=== PATIENT | male | born 1960 | race Caucasian/White ===

== ENCOUNTER 2017-05-22 22:34 | Inpatient (IN) | payer OTHER ==
[~2017-05-22] VITALS: Ht 172.7 cm; Wt 92.9 kg
[~2017-05-22 22:34] MED LIST: ADALKIT INJ; AZAT50TA25 PO; FLM4 PO; OXYC-57 PO; PHEN-1042 PO
[2017-05-22] MEDS ORDERED: PRLSR20 PO (22:49)
[2017-05-22] MEDS ORDERED: SODIUM CHLORIDE 0.9% 1000ML 1,000 ML IV STA (22:57)
[2017-05-22] MEDS ORDERED: ONDANSETRON INJ 2 MG/ML 2 ML VIAL IV STA (22:57)
--- NOTE | 2017-05-22 23:01 | EMERGENCY ROOM VISIT NOTE ---
History Report prepared by Nancy: Debbie Robins Under the Supervision of: Dr. Marv Merino D.O. First contact with patient: 22:45 Chief Complaint: ABDOMINAL PAIN Stated Complaint: SEVERE STOMACH PAIN,PUKING Nursing Triage Summary: hx of crohns c/o abd pain and n/v all day. History of Present Illness The patient is a 57 year old male who presents to the Emergency Room with complaints of intermittent abdominal pain for the past few days. He rates his discomfort as an 8/10 in severity. He admits to a history of Crohn's disease, for which he takes Humira. He has been on the Humira for the past 4 to 5 years. Today the patient became nauseous and started vomiting. He believes he still has his appendix and gallbladder. He admits to some minor rectal bleeding for the past few days. He has also experienced some back pain. The patient admits to a history of an anal fistula in the past. Source of History: patient Onset: past few days Position: abdomen Symptom Intensity: 8/10 Timing: intermittent Associated Symptoms: + nausea, + vomiting, + back pain Review of Systems See HPI for pertinent positives & negatives. A total of 10 systems reviewed and were otherwise negative. Past Medical & Surgical Medical Problems: (1) Anal fistula (2) Crohns disease (3) Enteritis (4) Kidney cancer (5) Leukocytosis Family History Cancer Social History Smoking Status: Never Smoker Alcohol Use: none Drug Use: none Marital Status: Housing Status: lives with significant other Occupation Status: unemployed Current/Historical Medications Scheduled Adalimumab (Humira Pen-Crohns Disease), 40 MG INJ EVERY 10 DAYS Azathioprine (Azathioprine), 250 MG PO DAILY Omeprazole (Prilosec), 1 CAP PO DAILY Scheduled PRN Oxycodone/Acetaminophen 5MG/325MG (Percocet 5MG/325MG), 1 TAB PO Q4H PRN for Pain Allergies Coded Allergies: No Known Allergies (Unverified , 05/22/17) Physical Exam Vital Signs Date Time Temp Pulse Resp B/P (MAP) Pulse Ox O2 Delivery O2 Flow Rate FiO2 05/23/17 01:40 76 18 134/86 94 Room Air 05/23/17 00:58 86 18 120/81 94 Room Air 05/22/17 23:42 89 05/22/17 23:37 87 20 140/78 93 Room Air 05/22/17 23:37 93 Room Air 05/22/17 22:37 36.3 85 18 122/75 95 Room Air Physical Exam GENERAL: Patient is awake, alert, very anxious appearing and uncomfortable EYES: The conjunctivae are clear. The pupils are round and reactive. EARS, NOSE, MOUTH AND THROAT: The nose is without any evidence of any deformity. Mucous membranes are moist tongue is midline NECK: The neck is nontender and supple. RESPIRATORY: Normal respiratory effort is noted there is no evidence of wheezing rhonchi or rales CARDIOVASCULAR: Regular rate and rhythm noted there no murmurs rubs or gallops normal S1 normal S2 GASTROINTESTINAL: The abdomen is moderately distended and diffusely tender. Significant tenderness in the LLQ. BACK: No midline tenderness or or step-off noted range of motion in flexion extension as well as rotation no signs of muscle spasm noted MUSCULOSKELETAL/EXTREMITIES: There is no evidence of gross deformity full range of motion is noted in the hips and shoulders SKIN: There is no obvious evidence of any rash. There are no petechiae, pallor or cyanosis noted. NEUROLOGIC: Patient is awake alert and oriented x3 Medical Decision & Procedures ER Provider Diagnostic Interpretation: CT the abdomen and pelvis was obtained in the emergency department. The report reviewed. Preliminary Findings Only See Final Report For Complete Findings CT ABDOMEN & PELVIS With Contrast: Lower thorax demonstrates dependent atelectasis. Subcentimeter lesion within the left hepatic lobe, which is nonspecific. Gallbladder, spleen, pancreas and adrenal glands are unremarkable. Kidneys, ureters and urinary bladder are unremarkable. Postsurgical changes within the bowel with edema noted within the small bowel mesentery, which is nonspecific. Query a nonspecific enteritis. Appendix is surgically absent. Gas is noted within the soft tissues of the anterior lower left abdominal wall, likely iatrogenic. No acute osseous abnormality. Radiologist: Steven Dailey MD Study ready at 01:38 and initial results transmitted at 01:56 Laboratory Results Test 05/22/17 22:58 05/22/17 23:55 Direct Bilirubin < 0.1 mg/dl (0-0.2) Lipase 130 U/L (73-393) Urine Color DK YELLOW Urine Appearance CLEAR (CLEAR) Urine pH 5.0 (4.5-7.5) Urine Specific [place] 1.032 (1.000-1.030) Urine Protein NEG (NEG) Urine Glucose (UA) NEG (NEG) Urine Ketones NEG (NEG) Urine Occult Blood NEG (NEG) Urine Nitrite NEG (NEG) Urine Bilirubin NEG (NEG) Urine Urobilinogen NEG (NEG) Urine Leukocyte Esterase NEG (NEG) Laboratory results per my review. Medications Administered Medications (Trade) Dose Ordered Sig/Deb Route Start Time Stop Time Status Last Admin Dose Admin Sodium Chloride 1,000 ml @ 999 mls/hr Q1H1M STAT IV 05/22/17 22:57 05/22/17 23:57 DC 05/22/17 23:12 999 MLS/HR Ondansetron HCl (Zofran Inj) 4 mg NOW STAT IV 05/22/17 22:57 05/22/17 22:59 DC 05/22/17 23:12 4 MG Morphine Sulfate (MoRPHine SULFATE INJ) 4 mg Q15M PRN IV 05/22/17 23:00 05/23/17 04:13 DC 05/23/17 00:55 4 MG Sodium Chloride 1,000 ml @ 999 mls/hr Q1H1M STAT IV 05/23/17 01:45 05/23/17 02:45 DC 05/23/17 01:56 999 MLS/HR Sodium Chloride 1,000 ml @ 200 mls/hr Q5H STAT IV 05/23/17 01:45 05/23/17 04:09 DC 05/23/17 01:45 200 MLS/HR Cefoxitin Sodium (Mefoxin 2000mg/ 60 ml D5W) 2,000 mg NOW STAT IV 05/23/17 01:45 05/23/17 01:46 DC 05/23/17 01:56 2,000 MG ED Course 2256: The patient was evaluated in room B4. A complete history and physical examination were performed. 2257: Zofran 4 mg IV, NSS 1000 ml @ 999 mls/hr IV. 2300: Morphine Sulfate 4 mg IV. 0145: Mefoxin 2000 mg/60 ml D5W 2000 mg IV, NSS 1000 ml @ 200 mls/hr IV, NSS 1000 ml @ 999 mls/hr IV. 0150: I discussed the patients case with Dr. Alatorre, [facility] Hospitalist. The patient will be further evaluated. Medical Decision Prior records/ancillary studies reviewed. Triage Nursing notes reviewed. The patient's history was concerning for abdominal pain. Differential diagnosis: Etiologies such as appendicitis, diverticulitis, PUD, biliary pathology, UTI, pancreatitis, obstruction, mesenteric ischemia, aortic pathology, infections, inflammatory bowel disease, renal colic, as well as others were entertained. The patient is a 57-year-old male who presented to the emergency department for abdominal pain. The patient's history of Crohn's disease and has had bowel obstruction in the past. His history and physical exam appeared to be consistent with bowel obstruction. He was treated with IV fluids IV pain medicine and IV antiemetics. He was found have an elevated white blood cell count. He was started on IV antibiotics. His initial CAT scan really did not favor a small bowel obstruction although clinically it appeared to be consistent with a bowel obstruction. I discussed the patient's laboratory and radiographic studies with him. I also discussed his case with the on-call [facility] hospitalist. They have agreed to evaluate the patient in the emergency department for further management and disposition. Medication Reconcilliation Current Medication List: was personally reviewed by me Blood Pressure Screening Patient's blood pressure: Normal blood pressure Blood pressure disposition: Did not require urgent referral Consults Time Called: 0145 [facility] Return[facility] Call: 0150 I discussed the patients case with Sanjana Mcclendon. The patient will be further evaluated. Impression Primary Impression: RLQ abdominal pain Additional Impression: Crohn's disease Scribe Attestation The scribe's documentation has been prepared under my direction and personally reviewed by me in its entirety. I confirm that the note above accurately reflects all work, treatment, procedures, and medical decision making performed by me. Departure Information Dispostion Being Evaluated By Hospitalist Referrals Bernard Rasmussen (PCP) Patient Instructions My [facility] Problem Qualifiers Additional Impression: Crohn's disease Gastrointestinal tract location: unspecified location Digestive disease complication type: unspecified complication Qualified Codes: K50.919 - Crohn' s disease, unspecified, with unspecified complications
[2017-05-22 23:08] LABS: BASO % 0.2 %; BASO ABS # 0.04 K/uL (0-0.2); EOS % 0.1 %; EOS ABS # 0.02 K/uL (0-0.5); HEMATOCRIT 44.1 % (42-52); HEMOGLOBIN 15.6 g/dL (14.0-18.0); IG# 0.07 K/uL (0.00-0.02); LYMPH ABS # 2.42 K/uL (1.2-3.4); MEAN CELL VOLUME 83.4 fL (80-100); MEAN CORPUSCULAR HEMOGLOBIN 29.5 pg (25-34); MEAN CORPUSCULAR HGB CONC 35.4 g/dl (32-36); MEAN PLATELET VOLUME 9.4 fL (7.4-10.4); MONO % 5.4 %; MONO ABS # 1.01 K/uL (0.11-0.59); NEUT % 80.9 %; NEUT ABS # 15.08 K/uL (1.4-6.5); PLATELET COUNT 231 K/uL (130-400); RED CELL DISTRIBUTION WIDTH CV 12.7 % (11.5-14.5); WHITE BLOOD COUNT 18.64 K/uL (4.8-10.8)
[2017-05-22] MEDS: MoRPHine SULFATE 4 MG/ML 1 ML CARP\\VIAL IV PRN (23:13)
[2017-05-22 23:27] LABS: ALBUMIN 3.7 gm/dl (3.4-5.0); ALT/SGPT 22 U/L (12-78); BLOOD UREA NITROGEN 24 mg/dl (7-18); CALCIUM 9.3 mg/dl (8.5-10.1); CARBON DIOXIDE 27 mmol/L (21-32); CREATININE 1.02 mg/dl (0.60-1.40); GLUCOSE 120 mg/dl (70-99); LIPASE 130 U/L (73-393); POTASSIUM 3.6 mmol/L (3.5-5.1); SODIUM 139 mmol/L (136-145)
[2017-05-22 23:30] LABS: ALKALINE PHOSPHATASE 84 U/L (45-117); AST/SGOT 15 U/L (15-37); TOTAL PROTEIN 8.2 gm/dl (6.4-8.2)
[2017-05-22] MEDS ORDERED: OPTIRAY 320 IV PRN (23:30)
[2017-05-23] MEDS: MoRPHine SULFATE 4 MG/ML 1 ML CARP\\VIAL IV PRN (00:55)
[2017-05-23] MEDS ORDERED: CEFOXITIN 2000MG/60 ML D5W IV STA (01:45)
[2017-05-23] MEDS ORDERED: SODIUM CHLORIDE 0.9% 1000ML 1,000 ML IV STA ×2 (01:45)
--- NOTE | 2017-05-23 02:44 | History and Physical ---
History & Physical Date & Time of Service: May 23, 2017 at 02:34 Chief Complaint: Severe Stomach Pain,Puking Primary Care Physician: Bernard Rasmussen History of Present Illness Source: patient This is a 57 year old M with Crohns disease on outpatient medication of adalimumab (Humira) injections and Azathioprine (Muran) PO who presents to the emergency department with abdominal pain x 2 days with vomiting and subjective fever x 1 day and is found to have Leukocytosis of 18,000. Patient denies recent use of steroids. Patient also reporting episodes of loose tool/diarrhea. Patient denies recent antibiotics use. On imaging, CT abdomen shows edema within the small bowel mesentery suggestive of enteritis. In the ED, patient was given Cefoxitin 2 gram IV. Past Medical/Surgical History Medical Problems: (1) Crohns disease Status: Chronic (2) Kidney cancer Status: Resolved Family History Cancer Social History Smoking Status: Never Smoker Drug Use: none Marital Status: Housing status: lives with family Occupational Status: unemployed Allergies Coded Allergies: No Known Allergies (Unverified , 05/22/17) Home Medications Scheduled Adalimumab (Humira Pen-Crohns Disease), 40 MG INJ EVERY 10 DAYS Azathioprine (Azathioprine), 250 MG PO DAILY Omeprazole (Prilosec), 1 CAP PO DAILY Scheduled PRN Oxycodone/Acetaminophen 5MG/325MG (Percocet 5MG/325MG), 1 TAB PO Q4H PRN for Pain Review of Systems Constitutional: + fever Eyes: No worsening of vision ENT: No hearing loss, No nasal symptoms, No sore throat, No trouble swallowing Respiratory: No cough, No sputum, No wheezing, No shortness of breath Cardiovascular: No chest pain, No edema, No palpitations Abdomen: + pain, + nausea, + vomiting, + diarrhea, No constipation Musculoskeletal: No joint pain, No muscle pain, No swelling, No calf pain Genitourinary - Male: No dysuria Neurologic: No paralysis, No numbness/tingling Psychiatric: No substance abuse Endocrine: No fatigue Hematologic / Lymphatic: No abnormal bleeding/bruising Integumentary: No rash, No itch Physical Exam Vital Signs Date Time Temp Pulse Resp B/P (MAP) Pulse Ox O2 Delivery O2 Flow Rate FiO2 05/23/17 01:40 76 18 134/86 94 Room Air 1/14/18 00:58 86 18 120/81 94 Room Air 05/22/17 23:42 89 05/22/17 23:37 87 20 140/78 93 Room Air 05/22/17 23:37 93 Room Air 05/22/17 22:37 36.3 85 18 122/75 95 Room Air General Appearance: no apparent distress Head: normocephalic, atraumatic Eyes: normal inspection, EOMI ENT: normal ENT inspection, TMs normal, pharynx normal Neck: supple, no JVD, trachea midline Respiratory/Chest: chest non-tender, lungs clear, normal breath sounds, no respiratory distress, no accessory muscle use Cardiovascular: regular rate, rhythm, no edema, no JVD, normal peripheral pulses Abdomen/GI: normal bowel sounds, soft, no pulsatile mass, + pertinent finding ( midline surgical scar, abdomenal tenderness to palpation when pressing on center of the scar) Back: normal inspection, no muscle spasm, normal range of motion Extremities/Musculoskelatal: normal inspection, no calf tenderness, no pedal edema, normal range of motion, non-tender Neurologic/Psych: no motor/sensory deficits, alert, normal mood/affect, oriented x 3 Skin: normal color, warm/dry, no rash Diagnostics Laboratory Results Results Past 24 Hours Test 05/22/17 22:58 05/22/17 23:55 Range/Units White Blood Count 18.64 4.8-10.8 K/uL Red Blood Count 5.29 4.7-6.1 M/uL Hemoglobin 15.6 14.0-18.0 g/dL Hematocrit 44.1 42-52 % Mean Corpuscular Volume 83.4 80-100 fL Mean Corpuscular Hemoglobin 29.5 25-34 pg Mean Corpuscular Hemoglobin Concent 35.4 32-36 g/dl Platelet Count 231 130-400 K/uL Mean Platelet Volume 9.4 7.4-10.4 fL Neutrophils (%) (Auto) 80.9 % Lymphocytes (%) (Auto) 13.0 % Monocytes (%) (Auto) 5.4 % Eosinophils (%) (Auto) 0.1 % Basophils (%) (Auto) 0.2 % Neutrophils # (Auto) 15.08 1.4-6.5 K/uL Lymphocytes # (Auto) 2.42 1.2-3.4 K/uL Monocytes # (Auto) 1.01 0.11-0.59 K/uL Eosinophils # (Auto) 0.02 0-0.5 K/uL Basophils # (Auto) 0.04 0-0.2 K/uL RDW Standard Deviation 38.0 36.4-46.3 fL RDW Coefficient of Variation 12.7 11.5-14.5 % Immature Granulocyte % (Auto) 0.4 % Immature Granulocyte # (Auto) 0.07 0.00-0.02 K/uL Sodium Level 139 136-145 mmol/L Potassium Level 3.6 3.5-5.1 mmol/L Chloride Level 103 98-107 mmol/L Carbon Dioxide Level 27 21-32 mmol/L Anion Gap 8.0 3-11 mmol/L Blood Urea Nitrogen 24 7-18 mg/dl Creatinine 1.02 0.60-1.40 mg/dl Est Creatinine Clear Calc Drug Dose 89.8 ml/min Estimated GFR () 95.5 Estimated GFR (Non- 82.4 BUN/Creatinine Ratio 23.0 10-20 Random Glucose 120 70-99 mg/dl Calcium Level 9.3 8.5-10.1 mg/dl Total Bilirubin 0.6 0.2-1 mg/dl Direct Bilirubin < 0.1 0-0.2 mg/dl Aspartate Amino Transf (AST/SGOT) 15 15-37 U/L Alanine Aminotransferase (ALT/SGPT) 22 12-78 U/L Alkaline Phosphatase 84 45-117 U/L Total Protein 8.2 6.4-8.2 gm/dl Albumin 3.7 3.4-5.0 gm/dl Lipase 130 73-393 U/L Urine Color DK YELLOW Urine Appearance CLEAR CLEAR Urine pH 5.0 4.5-7.5 Urine Specific [place] 1.032 1.000-1.030 Urine Protein NEG NEG Urine Glucose (UA) NEG NEG Urine Ketones NEG NEG Urine Occult Blood NEG NEG Urine Nitrite NEG NEG Urine Bilirubin NEG NEG Urine Urobilinogen NEG NEG Urine Leukocyte Esterase NEG NEG Impression Assessment and Plan This is a 57 year old M with Crohns disease on outpatient medication of adalimumab (Humira) injections and Azathioprine (Muran) PO who presents to the emergency department with abdominal pain x 2 days with vomiting and subjective fever x 1 day and is found to have Leukocytosis of 18,000. Patient denies recent use of steroids. Patient also reporting episodes of loose tool/diarrhea. Patient denies recent antibiotics use. On imaging, CT abdomen shows edema within the small bowel mesentery suggestive of enteritis. In the ED, patient was given Cefoxitin 2 gram IV. Differential for the small bowel inflammation may be Crohn's disease flare vs bacterial source of infection -GI consult requested whether this presentation may be Crohn's disease or from infectious process -will hold home dose immunosuppressants for now pending GI evaluation -stool study, fecal occult blood stool, C. diff test ordered -patient was given Cefoxitin 2 gram IV in the ED, will switch to Cipro IV and Flagyl IV for greater GI and anaerobic coverage of possible bacterial infection -IV fluids, antiemetics, pain medications -NPO except meds/ice chips/sips for now. advance diet as tolerated -DVT ppx SCDs Full Code Patient has followed with Dr. Tang of Gastroenterology in [place] Patient has followed with primary care Bernard Rasmussen [phone] Level of Care Med/Surg Resuscitation Status FULL RESUSCITATION VTE Prophylaxis VTE Risk Assessment Done? Y/N: Yes Risk Level: Moderate
[2017-05-23] MEDS ORDERED: ONDANSETRON INJ 2 MG/ML 2 ML VIAL IV PRN (02:45)
[2017-05-23 04:00] VITALS: BP 129/77; PULSE 78; TEMP 36.9; O2SAT 92; BMI 31.1
[2017-05-23] MEDS: ACETAMINOPHEN IV 650 MG in EMPTY BAG 0 ML IV PRN ×2 (04:20→17:48)
[2017-05-23] MEDS ORDERED: POTASSIUM CHLR 10 MEQ / WTR 10 MEQ in PREMIXED WATER 100 ML IV SCH (04:30)
[2017-05-23] MEDS: METRONIDAZOLE / NSS 500 MG in PREMIXED NSS 100 ML IV SCH ×3 (05:51→23:05)
--- NOTE | 2017-05-23 06:52 | DIAGNOSTIC IMAGING REPORT ---
ABDOMEN AND PELVIS CT WITH IV AND ORAL CONTRAST CT DOSE: 668.87 mGy.cm HISTORY: Right lower quadrant pain. Crohn's disease. TECHNIQUE: Multiaxial CT images of the abdomen and pelvis were performed following the use of intravenous and oral contrast. A dose lowering technique was utilized adhering to the principles of ALARA. COMPARISON STUDY: Abdomen and pelvis CT 11/07/2014. FINDINGS: Groundglass densities within the bilateral lower lobes favor subsegmental atelectasis. No pneumoperitoneum. No pneumatosis. No fractures within the visualized osseous structures. A stable 1.3 cm hypodense lesion within the hepatic dome. This favors a cyst or a the gallbladder, pancreas, spleen, adrenal glands, left kidney are unremarkable. Focal scarring within the lower pole the right kidney. No hydronephrosis. No retroperitoneal lymphadenopathy. The bladder is unremarkable. There is a single mildly enlarged right perirectal lymph node measuring 8 mm. This is increased in size when it previously measured 4 mm. The ascending colon and transverse colon have been resected. Mild thickening of the bowel loops at the anastomotic suture within the left side of the abdomen. There is also mesenteric fat stranding/edema surrounding the majority of the small bowel loops within the midabdomen and right lower quadrant. These small bowel loops are borderline distended measuring up to 3.3 cm. There is a decompressed loop of bowel seen within the midabdomen on image 234. This is approximately 15 cm proximal to the anastomosis. Mild thickening within the distal small bowel loops within the midabdomen. Therefore, these findings favor an enterocolitis at the site of anastomosis. This likely represents active inflammatory bowel disease. IMPRESSION: 1. Mild thickening within the distal small bowel loops within the midabdomen and the bowel loops at the ileocolonic anastomosis within the left side of the abdomen. There is also edema/fat stranding seen throughout the majority of the mesentery. Therefore, these findings likely represent an enterocolitis in the setting of active inflammatory bowel disease. 2. Borderline distended loops of the majority of small bowel with a decompressed loop of small bowel within the midabdomen. This favors a partial small bowel obstruction likely due to the inflamed small bowel. 3. Single mildly enlarged right perirectal lymph node or this could be reactive. Electronically signed by: Jj Light M.D. 05/23/2017 6:51 AM Dictated Date/Time: 05/23/2017 6:37 AM
[2017-05-23 07:20] VITALS: BP 109/66; PULSE 76; TEMP 36.3; O2SAT 93
[2017-05-23 07:36] LABS: BASO % 0.2 %; BASO ABS # 0.02 K/uL (0-0.2); EOS % 0.3 %; EOS ABS # 0.03 K/uL (0-0.5); HEMATOCRIT 38.1 % (42-52); HEMOGLOBIN 13.2 g/dL (14.0-18.0); IG# 0.03 K/uL (0.00-0.02); LYMPH % 24.9 %; MEAN CELL VOLUME 84.7 fL (80-100); MEAN CORPUSCULAR HEMOGLOBIN 29.3 pg (25-34); MEAN CORPUSCULAR HGB CONC 34.6 g/dl (32-36); MEAN PLATELET VOLUME 9.6 fL (7.4-10.4); MONO % 7.7 %; NEUT % 66.6 %; NEUT ABS # 7.76 K/uL (1.4-6.5); PLATELET COUNT 217 K/uL (130-400); RED CELL DISTRIBUTION WIDTH CV 12.8 % (11.5-14.5); RED CELL DISTRIBUTION WIDTH SD 39.2 fL (36.4-46.3); WHITE BLOOD COUNT 11.64 K/uL (4.8-10.8)
[2017-05-23 08:21] LABS: ALBUMIN 2.7 gm/dl (3.4-5.0); CALCIUM 7.9 mg/dl (8.5-10.1); CREATININE 0.97 mg/dl (0.60-1.40); POTASSIUM 3.7 mmol/L (3.5-5.1); TOTAL PROTEIN 6.4 gm/dl (6.4-8.2)
[2017-05-23] MEDS ORDERED: ACETAMINOPHEN IV 650 MG in EMPTY BAG 0 ML IV ONE (09:00)
[2017-05-23] MEDS ORDERED: NURSING VERBAL MED ORDER ONE ×2 (09:00→18:00)
[2017-05-23] MEDS ORDERED: COUGH DROP (SUGAR FREE) LOZ 24 LOZ/1 BOX ONE (09:20)
[2017-05-23] MEDS: CIPROFLOXACIN / D5W 400 MG in PREMIXED IN D5W 200 ML IV SCH ×2 (10:19→20:44)
[2017-05-23] MEDS: SODIUM CHLORIDE 0.9% 1000ML 1,000 ML IV SCH (10:19)
--- NOTE | 2017-05-23 13:20 | Progress Note ---
Internal Med Progress Note Date of Service: May 23, 2017. Provider Documentation: SUBJECTIVE: The patient was seen and examined Feels much better Denies any abdominal distension,Nausea and or vomiting OBJECTIVE: Vital Signs-as noted below Exam: General-No distress at rest Eyes-normal ENT-normal Neck-supple Lungs-Clear to auscultate bilaterally Heart-Regular,no murmur appreciated Abdomen-Benign,no masses,bowel sound present Extremities-No edema Neuro-AAOx3 No focal neuro deficit Lab data as noted below. ASSESSMENT & PLAN: This is a 57 year old M with Crohn disease on outpatient medication of adalimumab (Humira) injections and Azathioprine (Muran) PO who presents to the emergency department with abdominal pain x 2 days with vomiting and subjective fever x 1 day and is found to have Leukocytosis of 18,000. Patient denies recent use of steroids. Patient also reporting episodes of loose tool/diarrhea. Patient denies recent antibiotics use. On imaging, CT abdomen shows edema within the small bowel mesentery suggestive of enteritis. In the ED, patient was given Cefoxitin 2 gram IV. Enteritis/Colitis -Differential for the small bowel inflammation may be Crohn's disease flare vs bacterial source of infection -GI consult requested whether this presentation may be Crohn's disease or from infectious process and need for any Steroid -Hold home dose immunosuppressants for now pending GI evaluation -Stool study, fecal occult blood stool, C. diff test ordered -Patient was given Cefoxitin 2 gram IV in the ED, will switch to Cipro IV and Flagyl IV for greater GI and anaerobic coverage of possible bacterial infection -IV fluids, antiemetics, pain medications -Clears orally and advanced as tolerated -clinically much better -DVT ppx SCDs Full Code Patient has followed with Dr. Tang of Gastroenterology in [place] Patient has followed with primary care Bernard Rasmussen DISPOSITION Awaited Vital Signs: Date Time Temp Pulse Resp B/P (MAP) Pulse Ox O2 Delivery O2 Flow Rate FiO2 05/23/17 07:30 Room Air 05/23/17 07:20 36.3 76 18 109/66 (80) 93 Room Air 05/23/17 04:00 36.9 78 18 129/77 92 Room Air 05/23/17 03:50 Room Air 05/23/17 03:18 82 05/23/17 03:00 79 18 139/98 92 05/23/17 02:43 76 18 141/85 93 Room Air 05/23/17 01:40 76 18 134/86 94 Room Air 05/23/17 00:58 86 18 120/81 94 Room Air 05/22/17 23:42 89 05/22/17 23:37 87 20 140/78 93 Room Air 05/22/17 23:37 93 Room Air 05/22/17 22:37 36.3 85 18 122/75 95 Room Air Lab Results: Results Past 24 Hours Test 05/22/17 22:58 05/22/17 23:55 05/23/17 07:21 Range/Units White Blood Count 18.64 11.64 4.8-10.8 K/uL Red Blood Count 5.29 4.50 4.7-6.1 M/uL Hemoglobin 15.6 13.2 14.0-18.0 g/dL Hematocrit 44.1 38.1 42-52 % Mean Corpuscular Volume 83.4 84.7 80-100 fL Mean Corpuscular Hemoglobin 29.5 29.3 25-34 pg Mean Corpuscular Hemoglobin Concent 35.4 34.6 32-36 g/dl Platelet Count 231 217 130-400 K/uL Mean Platelet Volume 9.4 9.6 7.4-10.4 fL Neutrophils (%) (Auto) 80.9 66.6 % Lymphocytes (%) (Auto) 13.0 24.9 % Monocytes (%) (Auto) 5.4 7.7 % Eosinophils (%) (Auto) 0.1 0.3 % Basophils (%) (Auto) 0.2 0.2 % Neutrophils # (Auto) 15.08 7.76 1.4-6.5 K/uL Lymphocytes # (Auto) 2.42 2.90 1.2-3.4 K/uL Monocytes # (Auto) 1.01 0.90 0.11-0.59 K/uL Eosinophils # (Auto) 0.02 0.03 0-0.5 K/uL Basophils # (Auto) 0.04 0.02 0-0.2 K/uL RDW Standard Deviation 38.0 39.2 36.4-46.3 fL RDW Coefficient of Variation 12.7 12.8 11.5-14.5 % Immature Granulocyte % (Auto) 0.4 0.3 % Immature Granulocyte # (Auto) 0.07 0.03 0.00-0.02 K/uL Sodium Level 139 140 136-145 mmol/L Potassium Level 3.6 3.7 3.5-5.1 mmol/L Chloride Level 103 108 98-107 mmol/L Carbon Dioxide Level 27 25 21-32 mmol/L Anion Gap 8.0 7.0 3-11 mmol/L Blood Urea Nitrogen 24 17 7-18 mg/dl Creatinine 1.02 0.97 0.60-1.40 mg/dl Est Creatinine Clear Calc Drug Dose 89.8 81.5 ml/min Estimated GFR () 95.5 101.4 Estimated GFR (Non- 82.4 87.5 BUN/Creatinine Ratio 23.0 17.6 10-20 Random Glucose 120 97 70-99 mg/dl Calcium Level 9.3 7.9 8.5-10.1 mg/dl Total Bilirubin 0.6 0.6 0.2-1 mg/dl Direct Bilirubin < 0.1 0-0.2 mg/dl Aspartate Amino Transf (AST/SGOT) 15 8 15-37 U/L Alanine Aminotransferase (ALT/SGPT) 22 17 12-78 U/L Alkaline Phosphatase 84 62 45-117 U/L Total Protein 8.2 6.4 6.4-8.2 gm/dl Albumin 3.7 2.7 3.4-5.0 gm/dl Lipase 130 73-393 U/L Urine Color DK YELLOW Urine Appearance CLEAR CLEAR Urine pH 5.0 4.5-7.5 Urine Specific [place] 1.032 1.000-1.030 Urine Protein NEG NEG Urine Glucose (UA) NEG NEG Urine Ketones NEG NEG Urine Occult Blood NEG NEG Urine Nitrite NEG NEG Urine Bilirubin NEG NEG Urine Urobilinogen NEG NEG Urine Leukocyte Esterase NEG NEG Globulin 3.7 2.5-4.0 gm/dl Albumin/Globulin Ratio 0.7 0.9-2 Microbiology Results 05/23/17 C.difficile Toxin B Gene (PCR) - Final, Complete No C. difficile toxin B gene detected 05/23/17 Shiga Toxin Test, Received Pending 05/23/17 Stool Culture, Received Pending
[2017-05-23] MEDS ORDERED: METHYLPREDNISOLONE IV 40 MG in SYRINGE 0 ML IV SCH (14:00)
[2017-05-23 14:59] VITALS: BP 128/76; PULSE 67; TEMP 36.8; O2SAT 96
--- NOTE | 2017-05-23 19:03 | GASTROINTESTINAL CONSULTATION ---
DATE OF CONSULTATION: 05/23/2017 GASTROENTEROLOGY CONSULTATION AND CROSS COVERAGE FOR: [facility]. RACE: . ATTENDING PHYSICIAN: Dr. Alexander Alatorre. CONSULTING PHYSICIAN: Dr. Damian. REASON FOR CONSULTATION: Crohn flare versus infectious enteritis. HISTORY OF PRESENT ILLNESS: Bruce Burton is a 57-year-old male with a longstanding history of Crohn disease who has previously undergone a bowel resection secondary to ileocolonic Crohn's. He follows with [facility] in [place] and is maintained on Humira 40 mg subQ every 10 days. He states that he also takes azathioprine 250 mg p.o. daily and states that he was doing well until approximately 2 days prior to his evaluation in the ER with fevers, vomiting and abdominal pain in the mid lower abdomen and should be noted that his pain was around the abdominal surgical scar, and he did note some bloating as well. Upon arrival to the Department of Emergency Medicine, he was noted to have an elevated white blood cell count of 18.64. His hemoglobin was 15.6, hematocrit was 44.1, and his platelet count was 231. He had a normal liver panel with BUN and creatinine were 24 and 1.02. His UA was normal. He did undergo CT scan of the abdomen and pelvis which did show mild thickening within the distal small bowel loops. In the mid abdomen, there was edema, fat stranding seen throughout the majority of the mesentery. He had borderline distended loops with a majority of the small bowel with a decompressed loop of small bowel within the mid abdomen and a single mildly enlarged right perirectal lymph node. He subsequently was admitted. He was started on IV fluids as well as antibiotics including Cipro 400 mg IV q. 12, Flagyl 500 mg IV q. 8. At the time that I saw the patient, he did have an improvement of his symptoms; however, he continued to complain of mid abdominal pain around his prior surgical incisional site which he described as 4/10 in intensity, chronic, achy, nonradiating without alleviating or exacerbating factors. He states that he has no appetite at this time, he could not tell me the date of his most recent colonoscopy and states he has not been on steroids for some time, though could not quantify. He denies any fevers, chills, nausea, vomiting, hematemesis, melena or hematochezia. He denies any further complaints. PAST MEDICAL HISTORY: Significant for Crohn's, ileocolitis and history of kidney cancer. PAST SURGICAL HISTORY: Includes a bowel resection with an ileocolonic anastomosis. ALLERGIES: None. MEDICATIONS: At present include Cipro 400 mg IV q. 12 hours, Flagyl 500 mg IV q. 8 hours, Tylenol 650 IV q. 6 hours p.r.n. pain or fever, Zofran 4 mg IV q. 4 hours p.r.n. nausea. SOCIAL HISTORY: He is . His is at his bedside. He is currently unemployed. He denies any tobacco, alcohol or illicit drug use. FAMILY HISTORY: Negative for GI malignancy or inflammatory bowel diseases. REVIEW OF SYSTEMS: Negative x12 system review other than pertinent positives listed in the HPI. PHYSICAL EXAMINATION: VITAL SIGNS: Temperature 36.3, pulse 76, respirations 18, blood pressure 109/66, pulse ox 93% on room air. GENERAL: He is awake, cooperative, in no acute distress. HEENT: Normocephalic, atraumatic. EYES: Pupils equal and round. Extraocular muscles are intact. ENT: External evaluation of ears and nose are normal. Oropharynx is clear. NECK: Soft and supple. There is no JVD or lymphadenopathy. CHEST: Clear to auscultation bilaterally. CARDIOVASCULAR SYSTEM: Regular rate and rhythm. ABDOMEN: Soft, tender around the surgical incisional scar, nondistended. There are positive bowel sounds. There is no hepatosplenomegaly or stigmata of chronic liver disease. EXTREMITIES: No clubbing, cyanosis or edema. SKIN: Soft, pink and turgor. LABORATORY STUDIES AND RADIOGRAPHIC STUDIES: Reviewed in the HPI. IMPRESSION: A 57-year-old male with a history of Crohn ileocolitis who presented with abdominal pain, fever and vomiting. PLAN: The patient has had a good response in regards to his white blood cell count with Cipro and Flagyl therapy; therefore, I will continue this at this time. I will also add Solu-Medrol 40 mg IV daily. I will continue him on his azathioprine 250 mg p.o. daily. I would also recommend continuing his Humira 40 mg subQ every 10 days. I will defer to the [facility] team when they resume his care on Wednesday. Once again, thanks for allowing me to participate in the care of this patient. If you have any further questions, please do not hesitate in contacting me.
[2017-05-23] MEDS: KETOROLAC TROMETHAMINE 15 MG/ML VIAL IV PRN (21:36)
[2017-05-23 22:50] VITALS: BP 127/72; PULSE 74; TEMP 36.8; O2SAT 95
[2017-05-24] MEDS: KETOROLAC TROMETHAMINE 15 MG/ML VIAL IV PRN ×2 (04:42→20:25)
[2017-05-24] MEDS: SODIUM CHLORIDE 0.9% 1000ML 1,000 ML IV SCH ×2 (04:42→17:19)
[2017-05-24] MEDS ORDERED: NURSING DECISION MEDICATION ORDER SCH (05:00)
[2017-05-24] MEDS: METRONIDAZOLE / NSS 500 MG in PREMIXED NSS 100 ML IV SCH ×3 (05:48→22:30)
[2017-05-24 07:21] VITALS: BP 118/71; PULSE 72; TEMP 36.5; O2SAT 96
[2017-05-24] MEDS: CIPROFLOXACIN / D5W 400 MG in PREMIXED IN D5W 200 ML IV SCH ×2 (09:42→20:30)
--- NOTE | 2017-05-24 10:35 | Gastroenterology Progress Note ---
Progress Note Date of Service: May 24, 2017 Subjective Pt evaluation today including: conversation w/ patient, conversation w/ family , physical exam, chart review, lab review Pt was seen and evaluated, chart reviewed. History of crohns on imuran, humira s /p 2 bowel resections is due for a repeat c-scope this year, admitted with N/V, abdominal pain. Tells me he feels this is similar to an IBD flare but felt worse. This AM he notes mild improvement of his symptoms. Is on cipro/flagyl, solumedrol. Follows with Dr. Tang in [place]. History of remicade in the past, this was DC w/ diagnosis of RCC, has been maintained on Humira and Imuran. He notes that he has been told in the past he may need escalation of therapy. Has needed steroids x 4 occurrences this month for suspected IBD flares. Last evaluated in December w/ plan CT ABD/Pelvis: Mild thickening within the distal small bowel loops within the midabdomen and the bowel loops at the ileocolonic anastomosis within the left side of the abdomen. There is also edema/fat stranding seen throughout the majority of the mesentery. Therefore, these findings likely represent an enterocolitis in the setting of active inflammatory bowel disease. Borderline distended loops of the majority of small bowel with a decompressed loop of small bowel within the midabdomen. This favors a partial small bowel obstruction likely due to the inflamed small bowel. Single mildly enlarged right perirectal lymph node or this could be reactive. MRE 2016: normal Colonoscopy 2016: mild inflammation at distal ileum Review of Systems Constitutional: No fever, No chills Respiratory: No cough, No shortness of breath Cardiac: No chest pain Abdomen: + pain, + nausea, No vomiting, No diarrhea, No constipation Medications Current Inpatient Medications Medications (Trade) Dose Ordered Sig/Deb Route Start Time Stop Time Status Last Admin Dose Admin Ioversol (Optiray 320) 100 ml UD PRN IV 05/22/17 23:30 05/26/17 23:29 Sodium Chloride 1,000 ml @ 75 mls/hr [id number] IV 05/23/17 05:00 06/22/17 04:59 05/24/17 04:42 75 MLS/HR Ondansetron HCl (Zofran Inj) 4 mg Q4H PRN IV 05/23/17 02:45 06/22/17 02:44 Ciprofloxacin/ Dextrose 400 mg/ Prmx 200 ml @ 100 mls/hr Q12 IV 05/23/17 09:00 06/02/17 08:59 05/24/17 09:42 100 MLS/HR Metronidazole 500 mg/Prmx 100 ml @ 100 mls/hr Q8H IV 05/23/17 06:00 06/02/17 05:59 05/24/17 05:48 100 MLS/HR Acetaminophen 650 mg/Empty Bag 65 ml @ 260 mls/hr Q6H PRN IV 05/23/17 03:45 06/22/17 03:44 05/23/17 17:48 260 MLS/HR Methylprednisolone Sodium Succinate 40 mg/Syringe 0.64 ml @ 1.5 mls/min Q24H IV 05/23/17 14:00 06/22/17 13:59 05/23/17 13:55 1.5 MLS/MIN Ketorolac Tromethamine (Toradol Inj) 15 mg Q6H PRN IV 05/23/17 21:15 05/28/17 21:14 05/24/17 04:42 15 MG Objective Vital Signs Date Time Temp Pulse Resp B/P (MAP) Pulse Ox O2 Delivery O2 Flow Rate FiO2 05/24/17 07:21 36.5 72 18 118/71 (87) 96 Room Air 05/23/17 23:30 Room Air 05/23/17 22:50 36.8 74 18 127/72 (90) 95 Room Air 05/23/17 15:15 Room Air 05/23/17 14:59 36.8 67 16 128/76 (93) 96 Room Air Physical Exam General Appearance: + mild distress Eyes: PERRL ENT: hearing grossly normal Neck: supple Respiratory/Chest: lungs clear, normal breath sounds Cardiovascular: regular rate, rhythm Abdomen: normal bowel sounds, soft, no organomegaly, + tenderness (generalized x 4) Neurologic/Psych: alert, normal mood/affect, oriented x 3 Skin: normal color Assessment and Plan 57-year-old male with a history of Crohn ileocolitis on humira and imuran w/ history of ileocolonic resection x 2 for stenosis and perforation who presented to [facility] ED with abdominal pain, fever and vomiting --> leukocytosis w / white count 18, imaging concerning for partial SBO and acute inflammatory changes. White count improved, good response to ABX. - Continue Cipro/Flagyl - Solu-Medrol 40 mg IV daily - Azathioprine 250 mg daily. - Humira 40 mg subQ every 10 days - Will need outpatient follow up with Dr. Tang, plan for a repeat colonoscopy for evaluation w/ escalation of IBD maintenance therapy. GI to follow - please call with any questions, concerns or acute changes. Attg add: I interviewed and examined pt, reviewed chart and labs. Pt with Crohn 's flare now with abd pain, fever, leukocytosis. Change solumedrol to 20 TID today, and wean to PO tomorrow. Diet as tolerated.
[2017-05-24 14:01] VITALS: Ht 172.7 cm; Wt 92.9 kg
--- NOTE | 2017-05-24 14:06 | Progress Note ---
Internal Med Progress Note Date of Service: May 24, 2017. Provider Documentation: SUBJECTIVE: The patient was seen and examined Feels much better today Moderate abdominal pain No Nausea and or vomiting OBJECTIVE: Vital Signs-as noted below Exam: General-No distress at rest Eyes-normal ENT-normal Neck-supple Lungs-Clear to auscultate bilaterally Heart-Regular,no murmur appreciated Abdomen-Benign,soft,mildly tender all over more over RLQ No guarding and or rigidity Extremities-No edema Neuro-AAOx3 No focal neuro deficit Lab data as noted below. ASSESSMENT & PLAN: This is a 57 year old M with Crohn disease on outpatient medication of adalimumab (Humira) injections and Azathioprine (Muran) PO who presents to the emergency department with abdominal pain x 2 days with vomiting and subjective fever x 1 day and is found to have Leukocytosis of 18,000. Patient denies recent use of steroids. Patient also reporting episodes of loose tool/diarrhea. Patient denies recent antibiotics use. On imaging, CT abdomen shows edema within the small bowel mesentery suggestive of enteritis. In the ED, patient was given Cefoxitin 2 gram IV. Enteritis/Colitis -Differential for the small bowel inflammation may be Crohn's disease flare vs bacterial source of infection -GI consult requested whether this presentation may be Crohn's disease or from infectious process and need for any Steroid -Hold home dose immunosuppressants for now pending GI evaluation -Stool study, fecal occult blood stool, C. diff test ordered -Patient was given Cefoxitin 2 gram IV in the ED, will switch to Cipro IV and Flagyl IV for greater GI and anaerobic coverage of possible bacterial infection -IV fluids, antiemetics, pain medications -IV solumedrol and oral Azathioprine started by GI -Clears orally and advanced as tolerated -clinically much better today -no increase in Diarrhea -DVT ppx SCDs Full Code Patient has followed with Dr. Tang of Gastroenterology in [place] Patient has followed with primary care Bernard Rasmussen DISPOSITION Likely discharge in a day or two Vital Signs: Date Time Temp Pulse Resp B/P (MAP) Pulse Ox O2 Delivery O2 Flow Rate FiO2 05/24/17 07:30 Room Air 05/24/17 07:21 36.5 72 18 118/71 (87) 96 Room Air 05/23/17 23:30 Room Air 05/23/17 22:50 36.8 74 18 127/72 (90) 95 Room Air 05/23/17 15:15 Room Air 05/23/17 14:59 36.8 67 16 128/76 (93) 96 Room Air
[2017-05-24] MEDS: METHYLPREDNISOLONE IV 20 MG in SYRINGE 0 ML IV SCH ×2 (14:20→20:30)
[2017-05-24 15:57] VITALS: BP 151/91; PULSE 68; TEMP 36.8; O2SAT 93
[2017-05-24 20:19] VITALS: BP 146/86; PULSE 72; O2SAT 94
[2017-05-24 23:05] VITALS: BP 146/87; PULSE 68; TEMP 36.4; O2SAT 93
[2017-05-25] MEDS: METRONIDAZOLE / NSS 500 MG in PREMIXED NSS 100 ML IV SCH (05:35)
[2017-05-25 06:11] LABS: HEMATOCRIT 37.5 % (42-52); HEMOGLOBIN 13.2 g/dL (14.0-18.0); MEAN CELL VOLUME 83.5 fL (80-100); MEAN CORPUSCULAR HEMOGLOBIN 29.4 pg (25-34); MEAN CORPUSCULAR HGB CONC 35.2 g/dl (32-36); MEAN PLATELET VOLUME 9.8 fL (7.4-10.4); PLATELET COUNT 235 K/uL (130-400); RED CELL DISTRIBUTION WIDTH CV 12.6 % (11.5-14.5); RED CELL DISTRIBUTION WIDTH SD 38.2 fL (36.4-46.3); WHITE BLOOD COUNT 9.49 K/uL (4.8-10.8)
[2017-05-25 06:46] LABS: CALCIUM 7.8 mg/dl (8.5-10.1); CREATININE 0.95 mg/dl (0.60-1.40); POTASSIUM 3.7 mmol/L (3.5-5.1)
[2017-05-25] MEDS: SODIUM CHLORIDE 0.9% 1000ML 1,000 ML IV SCH ×2 (08:07→23:53)
[2017-05-25] MEDS: METHYLPREDNISOLONE IV 20 MG in SYRINGE 0 ML IV SCH ×3 (08:08→20:49)
[2017-05-25] MEDS: KETOROLAC TROMETHAMINE 15 MG/ML VIAL IV PRN (08:08)
[2017-05-25] MEDS: CIPROFLOXACIN / D5W 400 MG in PREMIXED IN D5W 200 ML IV SCH (08:08)
[2017-05-25 08:23] VITALS: BP 141/85; PULSE 68; TEMP 36.4; O2SAT 93
--- NOTE | 2017-05-25 09:48 | Gastroenterology Progress Note ---
Progress Note Date of Service: May 25, 2017 Subjective Pt evaluation today including: conversation w/ patient, physical exam, chart review, lab review Pt was seen and evaluated, chart reviewed. Had clear liquids this AM for breakfast, noted increase in his abd pain which quickly resolved. Overall, feeling better. Pain is improved. No nausea. No vomiting. Continue to move his bowels, chronic diarrhea. No black or bloody stools. Follows with Dr. Tang in [place]. History of remicade in the past, this was DC w/ diagnosis of RCC, has been maintained on Humira and Imuran. He notes that he has been told in the past he may need escalation of therapy. Has needed steroids x 4 occurrences this month for suspected IBD flares. Last evaluated in December w/ plan Stool culture: negative Stool c.diff: negative CT ABD/Pelvis: Mild thickening within the distal small bowel loops within the midabdomen and the bowel loops at the ileocolonic anastomosis within the left side of the abdomen. There is also edema/fat stranding seen throughout the majority of the mesentery. Therefore, these findings likely represent an enterocolitis in the setting of active inflammatory bowel disease. Borderline distended loops of the majority of small bowel with a decompressed loop of small bowel within the midabdomen. This favors a partial small bowel obstruction likely due to the inflamed small bowel. Single mildly enlarged right perirectal lymph node or this could be reactive. MRE 2016: normal Colonoscopy 2016: mild inflammation at distal ileum Review of Systems Constitutional: No fever, No chills Respiratory: No cough, No shortness of breath Cardiac: No chest pain, No edema Abdomen: + pain, + diarrhea, No nausea, No vomiting, No constipation, No GI bleeding Medications Current Inpatient Medications Medications (Trade) Dose Ordered Sig/Deb Route Start Time Stop Time Status Last Admin Dose Admin Ioversol (Optiray 320) 100 ml UD PRN IV 05/22/17 23:30 05/26/17 23:29 Sodium Chloride 1,000 ml @ 75 mls/hr [id number] IV 05/23/17 05:00 06/22/17 04:59 05/25/17 08:07 75 MLS/HR Ondansetron HCl (Zofran Inj) 4 mg Q4H PRN IV 05/23/17 02:45 06/22/17 02:44 Ciprofloxacin/ Dextrose 400 mg/ Prmx 200 ml @ 100 mls/hr Q12 IV 05/23/17 09:00 06/02/17 08:59 05/25/17 08:08 100 MLS/HR Metronidazole 500 mg/Prmx 100 ml @ 100 mls/hr Q8H IV 05/23/17 06:00 06/02/17 05:59 05/25/17 05:35 100 MLS/HR Acetaminophen 650 mg/Empty Bag 65 ml @ 260 mls/hr Q6H PRN IV 05/23/17 03:45 06/22/17 03:44 05/23/17 17:48 260 MLS/HR Ketorolac Tromethamine (Toradol Inj) 15 mg Q6H PRN IV 05/23/17 21:15 05/28/17 21:14 05/25/17 08:08 15 MG Methylprednisolone Sodium Succinate 20 mg/Syringe 0.32 ml @ 1.5 mls/min TID IV 05/24/17 14:00 06/22/17 13:59 05/25/17 08:08 1.5 MLS/MIN Objective Vital Signs Date Time Temp Pulse Resp B/P (MAP) Pulse Ox O2 Delivery O2 Flow Rate FiO2 05/25/17 08:23 36.4 68 18 141/85 (103) 93 Room Air 05/24/17 23:30 Room Air 05/24/17 23:05 36.4 68 16 146/87 (106) 93 Room Air 05/24/17 20:19 72 146/86 (106) 94 Room Air 05/24/17 16:00 Room Air 05/24/17 15:57 36.8 68 18 151/91 (111) 93 Room Air Physical Exam General Appearance: no apparent distress Eyes: PERRL ENT: hearing grossly normal Neck: supple Respiratory/Chest: lungs clear, normal breath sounds Cardiovascular: regular rate, rhythm Abdomen: normal bowel sounds, soft, no organomegaly, no pulsatile mass Neurologic/Psych: alert, normal mood/affect, oriented x 3 Skin: normal color, no jaundice, warm/dry Laboratory Results Last 24 Hours Test 05/25/17 05:47 White Blood Count 9.49 K/uL Red Blood Count 4.49 M/uL Hemoglobin 13.2 g/dL Hematocrit 37.5 % Mean Corpuscular Volume 83.5 fL Mean Corpuscular Hemoglobin 29.4 pg Mean Corpuscular Hemoglobin Concent 35.2 g/dl RDW Standard Deviation 38.2 fL RDW Coefficient of Variation 12.6 % Platelet Count 235 K/uL Mean Platelet Volume 9.8 fL Sodium Level 141 mmol/L Potassium Level 3.7 mmol/L Chloride Level 111 mmol/L Carbon Dioxide Level 24 mmol/L Anion Gap 6.0 mmol/L Blood Urea Nitrogen 9 mg/dl Creatinine 0.95 mg/dl Est Creatinine Clear Calc Drug Dose 97.1 ml/min Estimated GFR () 104.0 Estimated GFR (Non- 89.8 BUN/Creatinine Ratio 10.0 Random Glucose 98 mg/dl Calcium Level 7.8 mg/dl Phosphorus Level 3.0 mg/dl Magnesium Level 2.2 mg/dl Assessment and Plan 57-year-old male with a history of Crohn ileocolitis on humira and imuran w/ history of ileocolonic resection x 2 for stenosis and perforation who presented to [facility] ED with abdominal pain, fever and vomiting --> leukocytosis w / white count 18, imaging concerning for partial SBO and acute inflammatory changes. White count improved, good response to ABX, symptomatically improving. - Continue clear liquids today for lunch, if tolerate can discuss advancing diet - Continue PO Cipro x 14 days - Continue PO Flagyl x 14 days - Solu-Medrol 20 mg TID IV daily - Will DC IV steroid today and change to PO - Prednisone 50 mg x 7 days - Prednisone 40 mg x 7 days - Prednisone 30 mg x 7 days - Prednisone 20 mg x 7 days - Prednisone 10 mg x 7 days - Prednisone 5 mg x 7 days - Prednisone 2.5 mg x 7 days - Azathioprine 250 mg daily. - Humira 40 mg subQ every 10 days - Will need outpatient follow up with Dr. Tang, plan for a repeat colonoscopy for evaluation w/ escalation of IBD maintenance therapy GI to follow - please call with any questions, concerns or acute changes. 1700 GI called the lab, will cancel Humira/Imuran drug levels and antibodies as if drawn as in patient w/o authorization will cost > $3,000. He will need to have these labs drawn prior to evaluation by Dr. Tang.
[2017-05-25] MEDS: METRONIDAZOLE 500 MG TAB PO SCH ×2 (14:21→20:48)
--- NOTE | 2017-05-25 14:22 | Progress Note ---
Internal Med Progress Note Date of Service: May 25, 2017. Provider Documentation: SUBJECTIVE: Seen and examined at bedside Reports chronic diarrhea. No blood in stools Abdominal pain is better On clear liquid diet Denies nausea, vomiting, chest pain, SOB OBJECTIVE: Vital Signs-as noted below Physical Exam: General Appearance:Moderately built and nourished, no apparent distress Head: normocephalic, Atraumatic Eyes: normal inspection, EOMI, PERRL Neck: supple, Trachea midline Respiratory/Chest: Normal breath sounds, CTA Cardiovascular: S1, S2, No murmur Abdomen/GI:Soft, Mild tender, Bowel sounds present Extremities/Musculoskelatal:normal inspection, no edema Neurologic/Psych:AAOX3, grossly no focal neurological deficits Skin: normal color, warm Lab data as noted below. ASSESSMENT & PLAN: Patient is a 57 yr male with Crohn disease on adalimumab (Humira) injections and Azathioprine as outpatient presents to the emergency department with abdominal pain x 2 days with vomiting and subjective fever x 1 day, Leukocytosis of 18K. CT abdomen shows edema within the small bowel mesentery suggestive of enteritis. Enterocolitis: DD: Crohn's disease flare Appreciate GI input Hold home immunosuppressants for now Stool studies: Negative Continue Cipro IV and Flagyl IV IV fluids pain control Advance diet as tolerated Plan o complete 2 week course of Abx therapy and prolonged Prednisone taper Was on Azathioprine 250 mg daily and Humira 40 mg subQ every 10 days as outpatient Needs follow up with Dr. Tang, for a repeat colonoscopy DVT px: SCDs Code Status: Full Code Disposition: Needs follow up with GI, Dr. Tang of Gastroenterology in [place] Follows with primary care Bernard Rasmussen Vital Signs: Date Time Temp Pulse Resp B/P (MAP) Pulse Ox O2 Delivery O2 Flow Rate FiO2 05/25/17 08:23 36.4 68 18 141/85 (103) 93 Room Air 05/25/17 07:45 Room Air 05/24/17 23:30 Room Air 05/24/17 23:05 36.4 68 16 146/87 (106) 93 Room Air 05/24/17 20:19 72 146/86 (106) 94 Room Air 05/24/17 16:00 Room Air 05/24/17 15:57 36.8 68 18 151/91 (111) 93 Room Air Lab Results: Results Past 24 Hours Test 05/25/17 05:47 Range/Units White Blood Count 9.49 4.8-10.8 K/uL Red Blood Count 4.49 4.7-6.1 M/uL Hemoglobin 13.2 14.0-18.0 g/dL Hematocrit 37.5 42-52 % Mean Corpuscular Volume 83.5 80-100 fL Mean Corpuscular Hemoglobin 29.4 25-34 pg Mean Corpuscular Hemoglobin Concent 35.2 32-36 g/dl RDW Standard Deviation 38.2 36.4-46.3 fL RDW Coefficient of Variation 12.6 11.5-14.5 % Platelet Count 235 130-400 K/uL Mean Platelet Volume 9.8 7.4-10.4 fL Sodium Level 141 136-145 mmol/L Potassium Level 3.7 3.5-5.1 mmol/L Chloride Level 111 98-107 mmol/L Carbon Dioxide Level 24 21-32 mmol/L Anion Gap 6.0 3-11 mmol/L Blood Urea Nitrogen 9 7-18 mg/dl Creatinine 0.95 0.60-1.40 mg/dl Est Creatinine Clear Calc Drug Dose 97.1 ml/min Estimated GFR () 104.0 Estimated GFR (Non- 89.8 BUN/Creatinine Ratio 10.0 10-20 Random Glucose 98 70-99 mg/dl Calcium Level 7.8 8.5-10.1 mg/dl Phosphorus Level 3.0 2.5-4.9 mg/dl Magnesium Level 2.2 1.8-2.4 mg/dl
[2017-05-25 15:15] VITALS: BP 145/77; PULSE 95; TEMP 37.1; O2SAT 93
[2017-05-25] MEDS: CIPROFLOXACIN 500 MG TAB PO SCH (20:49)
[2017-05-25 22:47] VITALS: BP 159/86; PULSE 64; TEMP 36.8; O2SAT 94
[2017-05-26 07:48] VITALS: BP 142/96; PULSE 64; TEMP 36.4; O2SAT 96
[2017-05-26] MEDS: CIPROFLOXACIN 500 MG TAB PO SCH (08:33)
[2017-05-26] MEDS: METRONIDAZOLE 500 MG TAB PO SCH ×2 (08:33→13:29)
[2017-05-26] MEDS: METHYLPREDNISOLONE IV 20 MG in SYRINGE 0 ML IV SCH ×2 (08:33→13:29)
--- NOTE | 2017-05-26 09:37 | Gastroenterology Progress Note ---
Progress Note Date of Service: May 26, 2017 Subjective Pt evaluation today including: conversation w/ patient, physical exam, chart review, lab review Pt seen and evaluated, chart reviewed. Advanced to regular diet last night. Is feeling well. Was to get drug level and antibodies, this was canceled due to out of pocket cost. Denies fever, chills, CP, SOB. Continue to have mild abd pain. Is moving his bowels. No nausea, vomiting. Wants to go home. Stool culture: negative Stool c.diff: negative CT ABD/Pelvis: Mild thickening within the distal small bowel loops within the midabdomen and the bowel loops at the ileocolonic anastomosis within the left side of the abdomen. There is also edema/fat stranding seen throughout the majority of the mesentery. Therefore, these findings likely represent an enterocolitis in the setting of active inflammatory bowel disease. Borderline distended loops of the majority of small bowel with a decompressed loop of small bowel within the midabdomen. This favors a partial small bowel obstruction likely due to the inflamed small bowel. Single mildly enlarged right perirectal lymph node or this could be reactive. MRE 2016: normal Colonoscopy 2016: mild inflammation at distal ileum Review of Systems Constitutional: No fever, No chills Respiratory: No cough, No shortness of breath Cardiac: No chest pain, No edema Abdomen: No pain, No nausea, No vomiting Medications Current Inpatient Medications Medications (Trade) Dose Ordered Sig/Deb Route Start Time Stop Time Status Last Admin Dose Admin Ioversol (Optiray 320) 100 ml UD PRN IV 05/22/17 23:30 05/26/17 23:29 Sodium Chloride 1,000 ml @ 75 mls/hr [id number] IV 05/23/17 05:00 06/22/17 04:59 05/25/17 23:53 75 MLS/HR Ondansetron HCl (Zofran Inj) 4 mg Q4H PRN IV 05/23/17 02:45 06/22/17 02:44 Acetaminophen 650 mg/Empty Bag 65 ml @ 260 mls/hr Q6H PRN IV 05/23/17 03:45 06/22/17 03:44 05/23/17 17:48 260 MLS/HR Ketorolac Tromethamine (Toradol Inj) 15 mg Q6H PRN IV 05/23/17 21:15 05/28/17 21:14 05/25/17 08:08 15 MG Methylprednisolone Sodium Succinate 20 mg/Syringe 0.32 ml @ 1.5 mls/min TID IV 05/24/17 14:00 06/22/17 13:59 05/26/17 08:33 1.5 MLS/MIN Ciprofloxacin (Cipro Tab) 500 mg BID PO 05/25/17 21:00 06/02/17 08:59 05/26/17 08:33 500 MG Metronidazole (Flagyl Tab) 500 mg TID PO 05/25/17 14:00 06/02/17 05:59 05/26/17 08:33 500 MG Objective Vital Signs Date Time Temp Pulse Resp B/P (MAP) Pulse Ox O2 Delivery O2 Flow Rate FiO2 05/26/17 07:48 36.4 64 18 142/96 (111) 96 Room Air 05/26/17 00:05 Room Air 05/25/17 22:47 36.8 64 16 159/86 (110) 94 Room Air 05/25/17 15:50 Room Air 05/25/17 15:15 37.1 95 18 145/77 (99) 93 Room Air Physical Exam General Appearance: no apparent distress Eyes: PERRL ENT: hearing grossly normal Neck: supple Respiratory/Chest: lungs clear, normal breath sounds Cardiovascular: regular rate, rhythm Abdomen: normal bowel sounds, soft, no organomegaly, + tenderness (generalized tenderness) Neurologic/Psych: alert, normal mood/affect, oriented x 3 Skin: normal color Laboratory Results Last 24 Hours Test 05/26/17 08:50 Assessment and Plan 57-year-old male with a 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 White count improved, good response to ABX, symptomatically improving. - Low fiber diet as tolerated - Continue PO Cipro x 14 days - Continue PO Flagyl x 14 days - Solu-Medrol 20 mg TID IV daily - Please DC IV steroid today and change to PO - Prednisone 50 mg x 7 days - Prednisone 40 mg x 7 days - Prednisone 30 mg x 7 days - Prednisone 20 mg x 7 days - Prednisone 10 mg x 7 days - Prednisone 5 mg x 7 days - Prednisone 2.5 mg x 7 days - Azathioprine 250 mg daily. - Humira 40 mg subQ every 10 days - GI will not order inpatient humira/imuran drug levels, antibodies due to high cost while admitted - Will need outpatient follow up with Dr. Tang, plan for a repeat colonoscopy for evaluation w/ escalation of IBD maintenance therapy GI to sign off. No GI contraindication to discharge. Please call with any questions, concerns or acute changes.
[2017-05-26 09:41] LABS: CALCIUM 8.1 mg/dl (8.5-10.1); CREATININE 1.01 mg/dl (0.60-1.40); POTASSIUM 3.5 mmol/L (3.5-5.1)
[2017-05-26] MEDS: SODIUM CHLORIDE 0.9% 1000ML 1,000 ML IV SCH (09:45)
[2017-05-26] MEDS ORDERED: NURSING VERBAL MED ORDER ONE (10:30)
[2017-05-26 10:36] VITALS: O2SAT 96
--- NOTE | 2017-05-26 11:47 | Progress Note ---
Internal Med Progress Note Date of Service: May 26, 2017. Provider Documentation: SUBJECTIVE: Seen and examined at bedside Feels better today Tolerates diet Reports chronic diarrhea. No blood in stools Abdominal pain is better Denies nausea, vomiting, chest pain, SOB Eager to get discharged OBJECTIVE: Vital Signs-as noted below Physical Exam: General Appearance:Moderately built and nourished, no apparent distress Head: normocephalic, Atraumatic Eyes: normal inspection, EOMI, PERRL Neck: supple, Trachea midline Respiratory/Chest: Normal breath sounds, CTA Cardiovascular: S1, S2, No murmur Abdomen/GI:Soft, Mild tender, Bowel sounds present Extremities/Musculoskelatal:normal inspection, no edema Neurologic/Psych:AAOX3, grossly no focal neurological deficits Skin: normal color, warm Lab data as noted below. ASSESSMENT & PLAN: Patient is a 57 yr male with Crohn disease on adalimumab (Humira) injections and Azathioprine as outpatient presents to the emergency department with abdominal pain x 2 days with vomiting and subjective fever x 1 day, Leukocytosis of 18K. CT abdomen shows edema within the small bowel mesentery suggestive of enteritis. Enterocolitis: DD: Crohn's disease flare Appreciate GI input Hold home immunosuppressants for now Stool studies: Negative Continue Cipro IV and Flagyl IV IV fluids pain control Advance diet as tolerated Plan o complete 2 week course of Abx therapy and prolonged Prednisone taper Was on Azathioprine 250 mg daily and Humira 40 mg subQ every 10 days as outpatient Follow up with Dr. Tang, on 04/03/18 and for a repeat colonoscopy as outpatient DVT px: SCDs Code Status: Full Code Disposition: Follow up with your [employer] Dr. Tang on 06/03/17 and for colonoscopy as outpatient Follows with primary care physician on 05/31/17 at 10:45am Complete the antibiotic and Prednisone Taper course as prescribed Seek immediate medical attention if your symptoms reoccur or worsen Vital Signs: Date Time Temp Pulse Resp B/P (MAP) Pulse Ox O2 Delivery O2 Flow Rate FiO2 05/26/17 10:36 96 Room Air 05/26/17 07:48 36.4 64 18 142/96 (111) 96 Room Air 05/26/17 00:05 Room Air 05/25/17 22:47 36.8 64 16 159/86 (110) 94 Room Air 05/25/17 15:50 Room Air 05/25/17 15:15 37.1 95 18 145/77 (99) 93 Room Air Lab Results: Results Past 24 Hours Test 05/26/17 08:50 Range/Units Sodium Level 140 136-145 mmol/L Potassium Level 3.5 3.5-5.1 mmol/L Chloride Level 111 98-107 mmol/L Carbon Dioxide Level 25 21-32 mmol/L Anion Gap 4.0 3-11 mmol/L Blood Urea Nitrogen 11 7-18 mg/dl Creatinine 1.01 0.60-1.40 mg/dl Est Creatinine Clear Calc Drug Dose 91.4 ml/min Estimated GFR () 96.6 Estimated GFR (Non- 83.3 BUN/Creatinine Ratio 11.3 10-20 Random Glucose 92 70-99 mg/dl Calcium Level 8.1 8.5-10.1 mg/dl
[2017-05-26] MEDS ORDERED: PRD10 PO (11:57)
[2017-05-26] MEDS ORDERED: CPR500 PO (11:57)
[2017-05-26] MEDS ORDERED: MTR500 PO (11:57)
[2017-05-26] MEDS ORDERED: PRD20 PO (11:57)
[2017-05-26 12:00] VITALS: BP 142/96; PULSE 64; TEMP 36.4; O2SAT 96
--- NOTE | 2017-05-26 12:00 | Discharge Summary ---
Discharge Summary Date of Service May 26, 2017. Discharge Summary Admission Date: May 23, 2017 at 02:24 Discharge Date: May 26, 2017 Discharge Disposition: Home Principal Diagnosis: Enterocolitis, Crohn's Disease Procedures: CT ABD: 1. Mild thickening within the distal small bowel loops within the midabdomen and the bowel loops at the ileocolonic anastomosis within the left side of the abdomen. There is also edema/fat stranding seen throughout the majority of the mesentery. Therefore, these findings likely represent an enterocolitis in the setting of active inflammatory bowel disease. 2. Borderline distended loops of the majority of small bowel with a decompressed loop of small bowel within the midabdomen. This favors a partial small bowel obstruction likely due to the inflamed small bowel. 3. Single mildly enlarged right perirectal lymph node or this could be reactive. Consultations: GI Pending Studies/Follow-Up: Follow up with your [employer] Dr. Tang on 06/03/17 and for colonoscopy as outpatient Follows with primary care physician on 05/31/17 at 10:45am Complete the antibiotic and Prednisone Taper course as prescribed Seek immediate medical attention if your symptoms reoccur or worsen Prednisone Taper Course: Start taking Prednisone 50mg x 7days then40 mg x 7days, then 30mg x 7days, then 20mg x 7days, then 10mg x 7days, then 5mg x 7days, then 2.5mg x 7days and stop Medication Reconciliation New Medications: Prednisone (Prednisone) 20 Mg Tab 20 MG PO UD for 49 Days, #42 TABS Start taking 50mg x 7days then40 mg x 7days, then 30mg x 7days, then 20mg x 7days, then 10mg x 7days, then 5mg x 7days, then 2.5mg x 7days and stop Prednisone (Prednisone) 10 Mg Tab 10 MG PO UD for 49 Days, #28 TABS Start taking 50mg x 7days then40 mg x 7days, then 30mg x 7days, then 20mg x 7days, then 10mg x 7days, then 5mg x 7days, then 2.5mg x 7days and stop Ciprofloxacin (Ciprofloxacin HCl) 500 Mg Tab 500 MG PO BID for 11 Days, #22 TAB Metronidazole (Metronidazole) 500 Mg Tab 500 MG PO TID for 11 Days, #33 TAB Continued Medications: Adalimumab (Humira Pen-Crohns Disease) 40 Mg/0.8 Ml Kit 40 MG INJ EVERY 10 DAYS Azathioprine (Azathioprine) 50 Mg Tab 250 MG PO DAILY 5 TABLET DOSE Omeprazole (Prilosec) Unknown Strength Capcr 1 CAP PO DAILY Oxycodone/Acetaminophen 5MG/325MG (Percocet 5MG/325MG) 1 Tab Tab 1 TAB PO Q4H PRN for Pain, #30 TAB Admission Information HPI (per Admitting provider): This is a 57 year old M with Crohns disease on outpatient medication of adalimumab (Humira) injections and Azathioprine (Muran) PO who presents to the emergency department with abdominal pain x 2 days with vomiting and subjective fever x 1 day and is found to have Leukocytosis of 18,000. Patient denies recent use of steroids. Patient also reporting episodes of loose tool/diarrhea. Patient denies recent antibiotics use. On imaging, CT abdomen shows edema within the small bowel mesentery suggestive of enteritis. In the ED, patient was given Cefoxitin 2 gram IV. Physical Exam (per Admitting): General Appearance: no apparent distress Head: normocephalic, atraumatic Eyes: normal inspection, EOMI ENT: normal ENT inspection, TMs normal, pharynx normal Neck: supple, no JVD, trachea midline Respiratory/Chest: chest non-tender, lungs clear, normal breath sounds, no respiratory distress, no accessory muscle use Cardiovascular: regular rate, rhythm, no edema, no JVD, normal peripheral pulses Abdomen/GI: normal bowel sounds, soft, no pulsatile mass, + pertinent finding (midline surgical scar, abdomenal tenderness to palpation when pressing on center of the scar) Back: normal inspection, no muscle spasm, normal range of motion Extremities/Musculoskelatal: normal inspection, no calf tenderness, no pedal edema, normal range of motion, non-tender Neurologic/Psych: no motor/sensory deficits, alert, normal mood/affect, oriented x 3 Skin: normal color, warm/dry, no rash Hospital Course Patient is a 57 yr male with Crohn disease on adalimumab (Humira) injections and Azathioprine as outpatient presents to the emergency department with abdominal pain x 2 days with vomiting and subjective fever x 1 day, Leukocytosis of 18K. CT abdomen shows edema within the small bowel mesentery suggestive of enteritis. Enterocolitis: DD: Crohn's disease flare Appreciate GI input Hold home immunosuppressants for now Stool studies: Negative Continue Cipro IV and Flagyl IV IV fluids pain control Advance diet as tolerated Plan o complete 2 week course of Abx therapy and prolonged Prednisone taper Was on Azathioprine 250 mg daily and Humira 40 mg subQ every 10 days as outpatient Follow up with Dr. Tang, on 04/03/18 and for a repeat colonoscopy as outpatient DVT px: SCDs Code Status: Full Code Disposition: Follow up with your [employer] Dr. Tang on 06/03/17 and for colonoscopy as outpatient Follows with primary care physician on 05/31/17 at 10:45am Complete the antibiotic and Prednisone Taper course as prescribed Seek immediate medical attention if your symptoms reoccur or worsen Total time spent on discharge = 34 minutes This includes examination of the patient, discharge planning, medication reconciliation, and communication with other providers. Discharge Instructions Discharge Instructions Date of Service May 26, 2017. Admission Reason for Admission: Crohn's Disease, Enteritis, Leukocytosis Discharge Discharge Diagnosis / Problem: Enterocolitis, Crohn's Disease Discharge Goals Goal(s): Decrease discomfort, Improve function Activity Recommendations Activity Limitations: resume your previous activity Exercise/Sports Limitations: as tolerated . Instructions / Follow-Up Instructions / Follow-Up Follow up with your [employer] Dr. Tang on 06/03/17 and for colonoscopy as outpatient Follows with primary care physician on 05/31/17 at 10:45am Complete the antibiotic and Prednisone Taper course as prescribed Seek immediate medical attention if your symptoms reoccur or worsen Prednisone Taper Course: Start taking Prednisone 50mg x 7days then40 mg x 7days, then 30mg x 7days, then 20mg x 7days, then 10mg x 7days, then 5mg x 7days, then 2.5mg x 7days and stop Current Hospital Diet Patient's current hospital diet: Regular Diet, Low Fiber Diet Discharge Diet Recommended Diet: Low Fiber Diet Pending Studies Studies pending at discharge: no Medical Emergencies . Who to Call and When: Medical Emergencies: If at any time you feel your situation is an emergency, please call 911 immediately. . Non-Emergent Contact Non-Emergency issues call your: Primary Care Provider, [employer] Call Non-Emergent contact if: you have a fever, your pain is not controlled, your pain is worsening, your pain is unusual for you, your pain is concerning you, you have any medication questions . . "Provider Documentation" section prepared by Dimas Washington. . VTE Core Measure Inpt VTE Proph given/why not?: SCD's <Electronically signed by Dimas Washington MD> Signed: 05/26/17 1159 Signed: The status of this report is Signed * If report status is Draft, the document has not been finalized by the responsible provider.
--- NOTE | 2017-05-28 08:16 | EDITING REQUIRED CODING QUERY ---
CODING QUERY To promote full compliance with coding requirements relating to patient care, provider participation is requested in all cases of finished stock inspector uncertainty. Please assist us with the question(s) below: Coding Question(s): Patient admitted with abdominal pain and vomiting in the setting of Crohns' disease of small /large intestine. Receives Humira injections/Outpatient. CT /Abdomen revealing for enteritis and partial SB obstruction. Please document the etiology of the enterocolitis. Thanks for your help! Carter Nugent [facility] Physician's Response(s): Could be secondary to Crohn's flare Principal Diagnosis: "_that condition established after study, to be chiefly responsible for occasioning the admission of the patient to the hospital for care." Co-Existing Principal Diagnosis: "_when two or more diagnoses equally meet the criteria for principal diagnosis as determined by the circumstances of admission, diagnostic work up, and/or therapy provided, and the Alphabetic Index, Tabular List, or another coding guideline does not provide sequencing direction, any one of the diagnoses may be sequenced first." "When the physician has documented what appears to be a current diagnosis in the body of the record, but has not included the diagnosis in the final diagnostic statement, the physician should be asked whether the diagnosis should be added." (Source [facility]oding [facility] 2 QTR90. p3-4)
== END 2017-05-26 13:46 | disposition home or self-care (01) | DRG 392 ==
LOC: C.EDB 22:35 → C.MSW 05-23 02:24 → ENRESERV 05-23 03:30
PROVIDERS: ADMIT Hospitalist; ATTEND Internal Medicine
DX: K52.9 Noninfective gastroenteritis and colitis, unspecified (principal); K50.80 Crohn's disease of both small and large intestine without complications; Z85.528 Personal history of other malignant neoplasm of kidney